=== PATIENT | female | born 1935 | race Caucasian/White ===

== ENCOUNTER 2017-08-18 10:45 | Inpatient (IN) | payer OTHER, MEDICARE ==
[~2017-08-18] VITALS: Ht 162.6 cm; Wt 53.5 kg
[~2017-08-18 10:45] MED LIST: CALCIUM600 MG; CLONIDINE HCL0.2 MG; ENBREL50 MG/1 ML; FOSAMAX70 MG/75 M; IBUPROFEN400 MG; LISINOPRIL-HCT1 EAC2; MAGNESIUM 300300 MG; METOPROLOL TAR100 MG; PRENATAL CAPSU1 EACH; THYROID
[2017-08-18] MEDS ORDERED: ALBUTEROL SULF 0.083% NEB SOLN 3 ML NEB NEB STA (10:47)
[2017-08-18] MEDS ORDERED: IPRATROPIUM BROMIDE 0.02% 2.5 ML NEB NEB STA (10:47)
[2017-08-18] MEDS ORDERED: METHYLPREDNISOLONE SOD SUCC 125 MG/2ML VIAL IV ONE (11:30)
--- NOTE | 2017-08-18 12:00 | Diagnostic Imaging Report ---
EXAMINATION: Chest, CHEST SINGLE (PORTABLE) INDICATION: Chest pain COMPARISON: None FINDINGS: LINES: None. Heart: Normal cardiac silhouette. Vascular: The pulmonary vasculature is within normal limits. Atherosclerotic calcifications of the aortic arch. Mediastinum: No mediastinal, hilar, or axillary mass or lymphadenopathy. Lungs: No parenchymal mass. No focal consolidation. Bibasilar atelectasis. Pleura: No pleural effusion. No pneumothorax. Bones: No acute osseous abnormality. Degenerative changes of the thoracic spine. Postoperative changes of the proximal right humerus. Soft tissues: Normal. Impression: No acute radiographic abnormality. Signed by: Dr. Curt Alexis M.D. on 08/18/2017 11:56 AM
[2017-08-18 12:42] LABS: BASOPHILS # (AUTO) 0.1 (0.0-0.1); BASOPHILS % 0.4 % (0.0-1.0); HEMATOCRIT 39.8 % (34.2-44.1); HEMOGLOBIN 12.8 g/dL (12.0-16.0); LYMPHOCYTES # (AUTO) 0.9 (1.0-3.2); MEAN CORPUSCULAR HEMOGLOBIN 31.4 pg (28-32); MEAN CORPUSCULAR HGB CONC 32.2 g/dL (31-35); MEAN CORPUSCULAR VOLUME 97.8 fL (81-99); MONOCYTES # (AUTO) 1.6 (0.2-0.8); MONOCYTES % 13.4 % (4.4-11.3); NEUTROPHILS % 77.9 % (38.7-80.0); PLATELET COUNT 202 x10e3/uL (140-360); RED BLOOD COUNT 4.07 x10e6/uL (3.6-5.1); RED CELL DISTRIBUTION WIDTH 13.6 % (11.7-14.4)
[2017-08-18 12:51] LABS: INR 0.96; PROTHROMBIN TIME 13.3 seconds (11.9-14.5)
[2017-08-18 12:52] LABS: PARTIAL THROMBOPLASTIN TIME 33.2 seconds (23.8-35.5)
[2017-08-18 12:59] LABS: ALBUMIN 3.2 g/dL (3.5-5.0); ALBUMIN/GLOBULIN RATIO 0.7 (0.8-2.0); ANION GAP 12.4 mmol/L (8-16); CREATININE, SERUM 0.96 mg/dL (0.57-1.11); POTASSIUM 3.4 mmol/L (3.5-5.1)
[2017-08-18 13:03] LABS: LYMPHOCYTES % (MANUAL) 9 % (19-48); MONOCYTES % (MANUAL) 11 % (3.4-9.0); NEUTROPHILS % (MANUAL) 80 % (40-74); PLATELET ESTIMATE ADEQUATE; PLATELET MORPHOLOGY COMMENT NORMAL; RBC MORPHOLOGY COMMENT NORMAL
[2017-08-18 13:19] LABS: CREATINE KINASE MB 0.6 ng/mL (0.00-5.00); THYROID STIMULATING HORMONE 0.548 uIU/mL (0.350-4.940)
[2017-08-18 13:30] LABS: BILIRUBIN,URINE NEGATIVE (NEGATIVE); KETONES,URINE TRACE (NEGATIVE); LEUKOCYTE ESTERASE ,URINE TRACE (NEGATIVE); NITRITE,URINE NEGATIVE (NEGATIVE); URINE UROBILINOGEN 1 mg/dL (0.2 - 1)
[2017-08-18 13:35] LABS: CLARITY,URINE HAZY (CLEAR); COLOR,URINE YELLOW (YELLOW); PROTEIN,URINE DIPSTICK 2+ (NEGATIVE)
[2017-08-18 13:42] LABS: BACTERIA,URINE FEW /HPF; EPITHELIAL CELLS,URINE FEW /LPF; HYALINE CASTS 0-1 (0-1); WBC,URINE (MAN) 0-5 /HPF (0-5)
[2017-08-18] MEDS ORDERED: SODIUM CHLORIDE 0.9% 250ML 250 ML ONE (16:06)
--- NOTE | 2017-08-18 16:50 | Diagnostic Imaging Report ---
EXAM: CT Chest WITH contrast INDICATION: Chest pain COMPARISON: None available TECHNIQUE: Chest was scanned utilizing a multidetector helical scanner from the lung apex through the level of the diaphragm after administration of IV contrast. Coronal and sagittal reconstructions were submitted for interpretation. Protocol: Pulmonary embolus protocol IV CONTRAST: 100 mL of Isovue 370 COMPLICATIONS: None RADIATION DOSE: Total exam DLP: 403.8 mGy*cm. CTDIvol has been reviewed. It is below the limits set by the Radiation Protocol Committee (RPC). FINDINGS: LINES/ TUBES: None. Heart: No cardiomegaly. No pericardial effusion. Vessels: No intraluminal filling defect within the pulmonary arteries to the segmental level. Atherosclerotic calcifications of the thoracic aorta and coronary arteries. Mediastinum: No mediastinal or hilar mass or lymphadenopathy. Normal thyroid. Lungs: No parenchymal mass. No focal consolidation. Punctate nodular densities are present in the left upper lobe, series 3 image 65, and the bilateral lower lobes, series 3 image 83. More confluent opacities are present in the bilateral lower lobes. Pleura: No pleural effusion. No pneumothorax. Soft tissues: Normal. No axillary mass or lymphadenopathy. Bones: No acute osseous abnormality. Degenerative changes of the thoracic spine. Postoperative changes of the proximal right humerus. Adrenal glands: Fat-containing left adrenal nodule. Prominent right adrenal gland, without a focal nodule identified. Abdomen: The partially visualized portions of the upper abdomen are unremarkable.. IMPRESSION: 1. No evidence of pulmonary arterial embolism or thrombosis to the segmental level. 2. Nodular densities in the lungs bilaterally may represent a developing pneumonia. Signed by: Dr. Curt Alexis M.D. on 08/18/2017 4:46 PM
[2017-08-18] MEDS ORDERED: SODIUM CHLORIDE 0.9% 250ML 250 ML IV ONE ×2 (17:00→17:45)
[2017-08-18] MEDS ORDERED: AZITHROMYCIN 500MG/NS 250 ML 250 ML IV STA (17:02)
[2017-08-18] MEDS: CEFTRIAXONE SOD 1 GM VIAL IV SCH ×2 (17:15→17:29)
[2017-08-18] MEDS ORDERED: AZITHROMYCIN 500MG/SOD CHL 0.9% 250ML BAG IV SCH (17:15)
--- OUTSIDE RECORDS SUMMARY | 2017-08-18 18:17 | XMS REPORT ---
Author Author [facility] Address Unknown Phone Unavailable Care Team Providers Care Industrial Health Engineer Name Role Phone KAT RICK Unavailable Unavailable Problems This patient has no known problems. Allergies, Adverse Reactions, Alerts This patient has no known allergies or adverse reactions. Medications This patient has no known medications. Results Test Description Test Time Test Comments Text Results Atomic Results Result Comments CT CHEST W [place] [address] Patient Name: RADHA TONEY MR # : [id number] : 1935 Age/Sex: 82/F Req #: [id number] Adm Physician: Ordered by: ALEX PUENTE MANAGER LOGISTIC Report #: [id number] Location: ER Room/Bed: Procedure: [id number] CT/CT CHEST W Exam Date: 08/18/17 Exam Time: 1627 REPORT STATUS: Signed EXAM: CT Chest WITH contrast INDICATION: Chest pain COMPARISON: None available TECHNIQUE: Chest was scanned utilizing a multidetector helical scanner from the lung apex through the level of the diaphragm after administration of IV contrast. Coronal and sagittal reconstructions were submitted for interpretation. Protocol: Pulmonary embolus protocol IV CONTRAST: 100 mL of Isovue 370 COMPLICATIONS: None RADIATION DOSE: Total exam DLP: 403.8 mGy*cm. CTDIvol has been reviewed. It is below the limits set by the Radiation Protocol Committee (RPC). FINDINGS: LINES/ TUBES: None. Heart: No cardiomegaly. No pericardial effusion. Vessels: No intraluminal filling defect within the pulmonary arteries to the segmental level. Atherosclerotic calcifications of the thoracic aorta and coronary arteries. Mediastinum : No mediastinal or hilar mass or lymphadenopathy. Normal thyroid. Lungs: No parenchymal mass. No focal consolidation. Punctate nodular densities are present in the left upper lobe, series 3 image 65, and the bilateral lower lobes, series 3 image 83. More confluent opacities are present in the bilateral lower lobes. Pleura: No pleural effusion. No pneumothorax. Soft tissues: Normal. No axillary mass or lymphadenopathy. Bones: No acute osseous abnormality. Degenerative changes of the thoracic spine. Postoperative changes of the proximal right humerus. Adrenal glands: Fat- containing left adrenal nodule. Prominent right adrenal gland, without a focal nodule identified. Abdomen: The partially visualized portions of the upper abdomen are unremarkable.. IMPRESSION: 1. No evidence of pulmonary arterial embolism or thrombosis to the segmental level. 2. Nodular densities in the lungs bilaterally may represent a developing pneumonia. Signed by: Dr. Kailyn Dailey M.D. on 08/18/2017 4:46 PM Dictated By: KAILYN DAILEY MD 45 COPY TO: ALEX PUENTE MANAGER LOGISTIC CHEST SINGLE (PORTABLE) [place] [address] Patient Name: RADHA TONEY MR #: [id number] : 1935 Age/Sex: 82/F Req #: [id number] Adm Physician: Ordered by: ALEX PUENTE MANAGER LOGISTIC Report # : [id number] Location: ER Room/Bed: Procedure: [id number] DX/CHEST SINGLE (PORTABLE) Exam Date: 08/18/17 Exam Time: 1145 REPORT STATUS: Signed EXAMINATION: Chest, CHEST SINGLE (PORTABLE) INDICATION: Chest pain COMPARISON: None FINDINGS: LINES: None. Heart: Normal cardiac silhouette. Vascular: The pulmonary vasculature is within normal limits. Atherosclerotic calcifications of the aortic arch. Mediastinum: No mediastinal, hilar, or axillary mass or lymphadenopathy. Lungs: No parenchymal mass. No focal consolidation. Bibasilar atelectasis. Pleura: No pleural effusion. No pneumothorax. Bones: No acute osseous abnormality. Degenerative changes of the thoracic spine. Postoperative changes of the proximal right humerus. Soft tissues: Normal. Impression: No acute radiographic abnormality. Signed by: Dr. Kailyn Dailey M.D. on 08/18/2017 11:56 AM Dictated By: KAILYN DAILEY MD 1156 Transcribed By: CAMILO on 08/18/17 1156 COPY TO: ALEX PUENTE NP
[2017-08-18] MEDS: SODIUM CHLORIDE 0.9% 1000ML 1,000 ML IV SCH (18:33)
[2017-08-18] MEDS ORDERED: SODIUM CHLORIDE 0.9% 50ML 50 ML ONE (18:39)
[2017-08-18] MEDS ORDERED: IOPAMIDOL 370 MG/ML 200 ML INFUS..BTL INJ ONE (18:39)
[2017-08-18] MEDS: ALBUTEROL SULF 0.083% NEB SOLN 3 ML NEB NEB SCH ×2 (18:50→21:35)
[2017-08-18] MEDS: IPRATROPIUM BROMIDE 0.02% 2.5 ML NEB NEB SCH ×2 (18:50→22:00)
[2017-08-19] MEDS: ALBUTEROL SULF 0.083% NEB SOLN 3 ML NEB NEB SCH ×3 (01:52→10:45)
[2017-08-19] MEDS: IPRATROPIUM BROMIDE 0.02% 2.5 ML NEB NEB SCH ×3 (06:35→19:15)
[2017-08-19] MEDS: SODIUM CHLORIDE 0.9% 1000ML 1,000 ML IV SCH (12:04)
[2017-08-19] MEDS: CEFTRIAXONE SOD 1 GM VIAL IV SCH ×2 (12:28→17:20)
[2017-08-19] MEDS ORDERED: POTASSIUM CHLORIDE 20 MEQ TAB CR PO ONE (13:30)
[2017-08-19 14:13] LABS: THYROID STIMULATING HORMONE 0.364 uIU/mL (0.350-4.940)
--- NOTE | 2017-08-19 15:42 | History and Physical ---
CLINICAL HISTORY: This is an 82-year-old white woman, a patient of Dr. Moore and Dr. Daly, seen in the emergency room of [facility] because of worsening cough, shortness of breath, and hypoxemia. This patient apparently has had a cough for 3 weeks. She went to see in her office and was referred to the emergency room. Workup in the emergency room included a chest x-ray that showed no acute abnormalities. CT scan of the chest showed no evidence of pulmonary embolism. There was nodular density bilaterally, cannot exclude pneumonia. She has history of rheumatoid arthritis. Her saturation in the emergency room was in the 90s despite being in the 70s in the doctor's office. She does have heavy right fingernails divehi. PAST MEDICAL HISTORY: Remarkable for appendectomy, left knee replacement, right hip surgery, right shoulder surgery, hypothyroidism, rheumatoid arthritis, and hypertension. MEDICATIONS: At home included Enbrel, lisinopril, hydrochlorothiazide, metoprolol, levothyroxine, magnesium oxide, and vitamins with iron. PERSONAL AND SOCIAL HISTORY: Cigarette smoker and continues smoke. 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 She drinks occasionally. She has dogs at home and is concerned about not able to feed them. FAMILY HISTORY: Both parents from old age. Brother and sister are alive and well. REVIEW OF SYSTEMS: Negative. PHYSICAL EXAMINATION: GENERAL: She is thin, poor hearing. VITAL SIGNS: Stable otherwise. Saturation in the 90s. CARDIOVASCULAR: Jugular veins are not distended. S1 and S2 somewhat rapid. LUNGS: Clear. ABDOMEN: Soft. Bowel sounds are present. EXTREMITIES: Show no cyanosis, clubbing, or edema. IMPRESSION: 1. Kevoy-rw-lofwpkv bronchitis. 2. Cigarette smoking. 3. Hypothyroidism. 4. Hypertension. 5. Rheumatoid arthritis. 6. Immunosuppression with Enbrel. 7. Resting tachycardia, possibly exacerbated by albuterol. RECOMMENDATIONS: Hospitalization, antibiotic coverage, and follow chest x-ray. Job#: [id number] DEMETRIUS cc:Tristan Daly MD
[2017-08-19] MEDS: METOPROLOL TARTRATE 50 MG TAB PO SCH (17:00)
[2017-08-19] MEDS: AZITHROMYCIN 500MG/NS 250 ML 250 ML IV SCH (17:33)
[2017-08-19 20:00] VITALS: BP 161/88
[2017-08-20] MEDS: IPRATROPIUM BROMIDE 0.02% 2.5 ML NEB NEB SCH ×3 (01:10→08:06)
[2017-08-20] MEDS: LEVOTHYROXINE SODIUM 112 MCG TAB PO SCH (06:13)
[2017-08-20 06:33] LABS: ANION GAP 12.7 mmol/L (8-16); CALCIUM 9.6 mg/dL (8.4-10.2); CREATININE, SERUM 0.96 mg/dL (0.57-1.11); POTASSIUM 4.7 mmol/L (3.5-5.1)
[2017-08-20 08:29] VITALS: BP 176/90
[2017-08-20] MEDS ORDERED: LISINOPRIL 10 MG TAB PO SCH (09:00)
[2017-08-20] MEDS ORDERED: HYDROCHLOROTHIAZIDE 25 MG TAB PO SCH (09:00)
[2017-08-20] MEDS: METOPROLOL TARTRATE 50 MG TAB PO SCH ×2 (09:34→17:13)
[2017-08-20] MEDS: MAGNESIUM OXIDE 400 MG TAB PO SCH (09:34)
[2017-08-20 09:38] VITALS: BP 153/76
[2017-08-20] MEDS ORDERED: ALBUTEROL/IPRATROPIUM 3 ML NEB NEB PRN (11:15)
[2017-08-20 12:14] VITALS: BP 153/76
[2017-08-20] MEDS: GUAIFENESIN 600MG/DEXTROMETHORPHAN 30MG TABSR PO SCH ×2 (12:23→20:17)
[2017-08-20 16:22] VITALS: BP 139/77
[2017-08-20] MEDS: CEFTRIAXONE SOD 1 GM VIAL IV SCH (17:13)
--- NOTE | 2017-08-20 17:49 | Consultation ---
DATE OF CONSULTATION: August 20, 2017 REASON FOR CONSULTATION: Shortness of breath and wheezing. HPI: Ms. Polk is an 82-year-old female. She regularly follows up with Dr. Moore and Dr. Daly. She presented with shortness of breath and wheezing to the emergency room and chest CT showed bilateral lower lobe infiltrate versus pneumonia. She has been a smoker for 60 years she smoked 1 pack per day for 60 years. 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 She is concerned about the swelling around her neck. She reports that it is new. REVIEW OF SYSTEMS: GENERAL: Denies any fever or chills. HEAD: Denies any head trauma. ENT: Denies any earache, nose or throat pain. CVS: Denies any chest pain. RESPIRATORY: Shortness of breath. The rest of the review systems are negative except as in history of present illness. PAST MEDICAL HISTORY: Left knee replacement, appendectomy, hypertension and rheumatoid arthritis. She on Enbrel. FAMILY AND SOCIAL HISTORY: She smoked for last 60 years 1 pack per day. 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 She drinks occasionally. She has dogs at home. FAMILY HISTORY: Denies any family history of heart disease. PHYSICAL EXAMINATION: VITALS: Temperature 97.6, pulse of 64, blood pressure 139/77, respiratory rate of 18, O2 sat 94% on 2 liters. SKIN: Warm and dry. GENERAL APPEARANCE: She is an elderly female not in any obvious distress. GENERAL: She is awake and alert, following commands and following commands appropriately. HEENT: Head atraumatic, normocephalic. Pupils are reactive. NECK: Supple with no JVD. Thyroid not enlarged. There is swelling underneath her chin, but I do not palpate any lymphadenopathy. CHEST: She has wheezing and crackles bilaterally. HEART: S1 and S2 audible. ABDOMEN: Soft and nontender, nondistended. EXTREMITIES: No clubbing, cyanosis or edema. NEUROLOGIC: Awake and alert. LABORATORY DATA: White count of 11,000, hemoglobin 12.8, platelets 202,000. Chemistry: Sodium 139, potassium 4.7, chloride 105, BUN 28, creatinine 0.96. Blood cultures have been negative. I have reviewed the images of CT of the chest showing evidence of right lower lobe pneumonia, no lymphadenopathy. ASSESSMENT AND PLAN: An 82-year-old female smoker for last 60 years presented with shortness of breath. CT chest showing possibility of pneumonia. She is immunocompromised as she takes Enbrel. She is concerned about the neck and swelling under her chin. I am not able to palpate any lymph nodes. PLAN: 1. Agree with IV Rocephin azithromycin. 2. Will start low-dose steroids. 3. Continue nebulizer treatment. 4. I will do a CT neck to rule out any mass lesion around the neck. Job#: [id number]
[2017-08-20] MEDS: AZITHROMYCIN 500MG/NS 250 ML 250 ML IV SCH (17:57)
[2017-08-20 20:00] VITALS: BP 136/70
[2017-08-20] MEDS: METHYLPREDNISOLONE SOD SUCC 40 MG/ML VIAL IV SCH (20:17)
--- NOTE | 2017-08-20 20:27 | Diagnostic Imaging Report ---
History: Neck swelling. Comparison studies: None Technique: Axial images were obtained from the skull base to the thoracic inlet. Coronal and sagittal images reconstructed from the axial data. Intravenous contrast: None Findings: Evaluation of the neck is limited due to the absence of intravenous contrast and dental amalgham artifacts. In spite of this limitation, Soft tissues: Nonspecific mild to moderate subcutaneous soft tissue inflammatory fat stranding in bilateral anterior and lateral aspect of the neck extending from the submandibular region superiorly to the level of the cricoid. There is associated thickening of the platysma bilaterally No discrete fluid collection however suboptimal evaluation for soft tissue abscess due to lack of intravenous contrast. Nonspecific mild mucosal edema in the supraglottic region resulting in focal, mild narrowing of the airway. Lymph nodes: No radiographically significant adenopathy. Vessels: Cannot evaluate. Glands (parotid and submandibular): Normal in size and symmetric. No masses. Thyroid gland is not visualized possibly related to prior surgery. Orbits: No abnormalities. Paranasal sinuses: Clear. Temporal bones: No abnormalities. Skull base and facial bones: Intact. Cervical spine: Reversal of normal cervical lordosis. 2 mm grade 1 anterolisthesis at C2-C3. C3-C4: Bilateral moderate foraminal stenosis due to facet and uncovertebral arthrosis. C4-C5: Mild right foraminal stenosis due to facet and uncovertebral arthrosis. C5-C6: Moderate to severe degenerative disc disease. Moderate right and mild left foraminal stenosis due to facet and uncovertebral arthrosis. C6-C7: Moderate right foraminal stenosis due to facet and uncovertebral arthrosis. IMPRESSION: Evaluation of the neck is limited due to the absence of intravenous contrast and dental amalgham artifacts. Despite the limitation nonspecific mild subcutaneous soft tissue inflammatory changes in the anterior and lateral aspect of the neck possibly represents cellulitis in appropriate clinical setting. No discrete fluid collection. Nonspecific mild mucosal edema in the supraglottic region resulting in focal, mild narrowing of the airway, may be related to infectious or inflammatory process. Signed by: Dr. Leida Rivas M.D. on 08/20/2017 8:24 PM
[2017-08-21] VITALS (8 sets, daily range): BP systolic 156–187; BP diastolic 76–93
[2017-08-21] MEDS: LEVOTHYROXINE SODIUM 112 MCG TAB PO SCH (05:23)
[2017-08-21] MEDS: MAGNESIUM OXIDE 400 MG TAB PO SCH (07:45)
[2017-08-21] MEDS: GUAIFENESIN 600MG/DEXTROMETHORPHAN 30MG TABSR PO SCH ×2 (07:45→21:00)
[2017-08-21] MEDS: METOPROLOL TARTRATE 50 MG TAB PO SCH ×2 (07:45→16:55)
[2017-08-21] MEDS: METHYLPREDNISOLONE SOD SUCC 40 MG/ML VIAL IV SCH ×2 (07:45→21:00)
--- NOTE | 2017-08-21 12:21 | Cardiology Report ---
DATE OF STUDY: ECHOCARDIOGRAM ATTENDING PHYSICIAN: Dr. Tristan Daly. NEONATAL SOCIAL WORKER: Dr. Jin. CLINICAL HISTORY AND INDICATION: An 82-year-old white woman presented with acute shortness of breath. M-MODE: Normal chamber and wall dimensions. Normal contractility. Aortic sclerosis grossly of the mitral valve leaflets. Normal tricuspid valve. No pericardial effusion. SECTOR SCAN: Normal chamber and wall dimensions. Normal contractility. Ejection fraction is approximately 60%. Aortic valve is mildly sclerotic. Anterior mitral leaflets slightly sclerotic. Normal tricuspid valve. No pericardial effusion. CARDIAC DOPPLER STUDY WITH COLOR: Trace mitral and tricuspid regurgitation. Pulmonary artery systolic pressure estimated at 27 mmHg. CONCLUSIONS 1. Left ventricular ejection fraction is approximately 65%. 2. Mild aortic sclerosis without significant aortic regurgitation. 3. Sclerosis of the anterior mitral leaflet with trace mitral regurgitation. 4. Trace tricuspid regurgitation. Job#: [id number] SAK cc:Dr. Tristan Daly
[2017-08-21] MEDS: PIPER-TAZ 3.375 GM 50 ML IV SCH ×2 (14:30→22:00)
[2017-08-21] MEDS: AZITHROMYCIN 500MG/NS 250 ML 250 ML IV SCH (17:14)
[2017-08-22 00:59] VITALS: BP 162/89
[2017-08-22] MEDS: PIPER-TAZ 3.375 GM 50 ML IV SCH (05:41)
[2017-08-22] MEDS: LEVOTHYROXINE SODIUM 112 MCG TAB PO SCH (05:41)
[2017-08-22] MEDS: METOPROLOL TARTRATE 50 MG TAB PO SCH (06:19)
[2017-08-22 06:20] LABS: BASOPHILS % 0.2 % (0.0-1.0); HEMATOCRIT 39.2 % (34.2-44.1); HEMOGLOBIN 12.4 g/dL (12.0-16.0); LYMPHOCYTES # (AUTO) 1.5 (1.0-3.2); LYMPHOCYTES % 16.4 % (18.0-39.1); MEAN CORPUSCULAR HEMOGLOBIN 30.8 pg (28-32); MEAN CORPUSCULAR HGB CONC 31.6 g/dL (31-35); MEAN CORPUSCULAR VOLUME 97.5 fL (81-99); MONOCYTES # (AUTO) 0.3 (0.2-0.8); MONOCYTES % 3.8 % (4.4-11.3); NEUTROPHILS # (AUTO) 7.1 (2.1-6.9); NEUTROPHILS % 78.7 % (38.7-80.0); PLATELET COUNT 285 x10e3/uL (140-360); RED BLOOD COUNT 4.02 x10e6/uL (3.6-5.1); RED CELL DISTRIBUTION WIDTH 13.5 % (11.7-14.4)
[2017-08-22 06:39] LABS: ANION GAP 11.6 mmol/L (8-16); CALCIUM 9.7 mg/dL (8.4-10.2); CREATININE, SERUM 1.04 mg/dL (0.57-1.11); POTASSIUM 5.6 mmol/L (3.5-5.1)
[2017-08-22 07:13] LABS: LYMPHOCYTES % (MANUAL) 14 % (19-48); MONOCYTES % (MANUAL) 4 % (3.4-9.0); NEUTROPHILS % (MANUAL) 82 % (40-74)
[2017-08-22 07:14] LABS: ANISOCYTOSIS SLIGHT; HOWELL-JOLLY BODIES FEW; HYPOCHROMASIA SLIGHT; PLATELET ESTIMATE ADEQUATE; PLATELET MORPHOLOGY COMMENT NORMAL; POIKILOCYTOSIS SLIGHT; RBC MORPHOLOGY COMMENT NORMAL
[2017-08-22 08:00] VITALS: BP_SYST 181; BP_DIAS 81; BP_DIAS 97
[2017-08-22] MEDS: METHYLPREDNISOLONE SOD SUCC 40 MG/ML VIAL IV SCH (09:05)
[2017-08-22] MEDS: GUAIFENESIN 600MG/DEXTROMETHORPHAN 30MG TABSR PO SCH (09:05)
[2017-08-22] MEDS: MAGNESIUM OXIDE 400 MG TAB PO SCH (09:05)
[2017-08-22] MEDS ORDERED: PROAIR HFA INH8.5 GM IH (11:23)
[2017-08-22] MEDS ORDERED: AUGMENTIN 875-1 EACH PO (11:23)
[2017-08-22 12:00] VITALS: BP 192/100
--- NOTE | 2017-08-22 14:44 | Discharge Summary ---
HISTORY AND HOSPITAL COURSE: Ms. Polk is a pleasant 82-year-old lady, who is a patient of Dr. Etienne, who has a past medical history significant for being a long-term smoker and history of rheumatoid arthritis and hypertension. She has been chronically on Enbrel for her rheumatoid arthritis. According to the patient, she has had upper respiratory symptoms, having dyspnea and wheezing that brought her to the emergency department. At the time of admission, she was evaluated with a chest x-ray and then a CT of the chest, which was consistent with bilateral lower lobe infiltrates. Her flu test was negative. She was admitted to the hospital and was started on a combination of ceftriaxone and Zithromax as well as nebulized [id number] and supplemental oxygen. The patient has a longstanding history of smoking as mentioned before, but according to her, she does not see a desktop publishing specialist and has not been diagnosed with COPD. A consultation was requested with Dr. Pacheco, pulmonology. She was seen by Dr. Pacheco. Her treatment plan was confirmed, but she complained at that time of having some neck and throat discomfort and some minor swelling of the soft tissue around the neck. A noncontrast CT of the neck was requested, this was consistent with some stranding of subcutaneous tissue that could be related to cellulitis. Her antibiotic was switched to Zosyn and with these interventions, the patient's symptoms quickly improved. She is being discharged home in stable condition. She is given prescriptions at discharge for Augmentin and ProAir. I have discussed smoking cessation in detail with the patient, and she is to follow up with her primary care physician in 10 days' time. LAUREN PLATT MD Job#: [id number] PAT
== END 2017-08-22 12:30 | disposition home or self-care (01) | DRG 190 ==
LOC: ER 10:45 → ERHOLD 18:14 → MED/SURG2 08-19 18:02
PROVIDERS: ADMIT Internal Medicine; ATTEND Internal Medicine
DX: J44.0 Chronic obstructive pulmonary disease with (acute) lower respiratory infection (principal); J18.9 Pneumonia, unspecified organism; L03.221 Cellulitis of neck; J44.1 Chronic obstructive pulmonary disease with (acute) exacerbation; M06.9 Rheumatoid arthritis, unspecified; I10 Essential (primary) hypertension; E03.9 Hypothyroidism, unspecified; F17.210 Nicotine dependence, cigarettes, uncomplicated; R09.02 Hypoxemia
CPT/HCPCS: 36415; 70490; 71045; 71260; 80048; 80053; 81001; 82550; 82553; 83880; 84132; 84436; 84443; 84479; 84484; 85025; 85610; 85651; 85730; 87040; 87086; 87400; 93005; 93306; 94640; 99284; J0456; J0696; J2543; J2920; J2930; J7030; J7050; Q9967

== ENCOUNTER 2019-09-29 13:48 | Emergency (ER) | payer BC, MEDICARE ==
[~2019-09-29] VITALS: Ht 162.6 cm; Wt 53.5 kg
[~2019-09-29 13:48] MED LIST changes: +AUGMENTIN 875-1 EACH PO; +PROAIR HFA INH8.5 GM IH
--- OUTSIDE RECORDS SUMMARY | 2019-09-29 13:53 | XMS REPORT | Summary of Care ---
Author Author [facility] - Health Organization [facility] - Health Address Unknown Phone Unavailable Care Team Providers Care Federal Air Marshal Name Role Phone Fabien Moore PCP Reason for Visit * Reason Comments Appointment Encounter Details Care Team Description Date Type Department Jose Godinez MD [address] [place] [address] Appointment 03/13/2019 Telephone [facility] Orthopaedic Surgery- [facility] [address], [address] [place] [address] Allergies No Known Allergiesdocumented as of this encounter (statuses as of 03/13/2019) Medications End Date Status Medication Sig Dispensed Refills Start Date Active lisinopril-hydrochlorothi lisinopril 10 0 azide 10-12.5 mg per mg-hydrochlor tablet othiazide 12.5 mg tablet Take 1 tablet every day by oral route. Active METOPROLOL TARTRATE ORAL Take 1 tablet 0 by mouth 2 (two) times daily. Active etanercept (ENBREL) 50 1 Dose 0 mg/mL (0.98 mL) injection weekly. Active ANORO ELLIPTA 62.5-25 INHALE 1 PUFF 6 mcg/actuation inhalation BY MOUTH ONCE 9 disk A DAY DIRECTED documented as of this encounter (statuses as of 03/13/2019) Active Problems No known active problemsdocumented as of this encounter (statuses as of 03/13/2019) Social History Date Tobacco Use Types Packs/Day Years Used Never Assessed Sex Assigned at Date Recorded Not on file Industry Job Start Date Occupation Not on file Not on file Not on file Travel End Travel History Travel Start No recent travel history available. documented as of this encounter Last Filed Vital Signs Not on filedocumented in this encounter Plan of Treatment Health Maintenance Due Date Last Done Comments DTaP,Tdap,and Td Vaccines 01/24/1954 (1 - Tdap) Zoster Recombinant 1987 Vaccine (SHINGRIX) (1 of 2) Medicare Wellness Visit 2002 Osteoporosis Screening 2002 PNEUMOCOCCAL VACCINES 65+ 2002 (1 of 2 - PCV13) INFLUENZA VACCINE (#1) 2019 documented as of this encounter Results Not on filedocumented in this encounter Insurance Type Payer Benefit Subscriber ID Effective Phone Address Plan / Dates Group [id number] documented as of this encounter
[2019-09-29 14:43] LABS: BASOPHILS % 0.3 % (0.0-1.0); EOSINOPHILS % 0.2 % (0.0-6.0); HEMATOCRIT 42.7 % (34.2-44.1); HEMOGLOBIN 14.1 g/dL (12.0-16.0); LYMPHOCYTES # (AUTO) 1.6 (1.0-3.2); LYMPHOCYTES % 12.6 % (18.0-39.1); MEAN CORPUSCULAR HEMOGLOBIN 31.4 pg (28-32); MEAN CORPUSCULAR VOLUME 95.1 fL (81-99); MONOCYTES # (AUTO) 1.9 (0.2-0.8); MONOCYTES % 15.4 % (4.4-11.3); NEUTROPHILS # (AUTO) 8.9 (2.1-6.9); NEUTROPHILS % 71.2 % (38.7-80.0); PLATELET COUNT 280 x10e3/uL (140-360); RED BLOOD COUNT 4.49 x10e6/uL (3.6-5.1); RED CELL DISTRIBUTION WIDTH 12.8 % (11.7-14.4)
[2019-09-29 15:00] LABS: ALBUMIN 3.4 g/dL (3.5-5.0); ALBUMIN/GLOBULIN RATIO 0.7 (0.8-2.0); ANION GAP 11.5 mmol/L (8-16); CALCIUM 11.1 mg/dL (8.4-10.2); CREATININE, SERUM 1.21 mg/dL (0.57-1.11); POTASSIUM 3.5 mmol/L (3.5-5.1)
[2019-09-29 15:06] LABS: CREATINE KINASE MB 3.9 ng/mL (0-5.0)
[2019-09-29] MEDS ORDERED: ALBUTEROL/IPRATROPIUM 3 ML NEB NEB ONE (15:30)
--- NOTE | 2019-09-29 15:47 | Diagnostic Imaging Report ---
EXAMINATION: CHEST SINGLE (PORTABLE) INDICATION: Chest pain COMPARISON: Chest are graft to 10/02/2017 FINDINGS: LINES/TUBES:None LUNGS:The lungs are hyperinflated. New patchy opacity at the left mid lung and left lung base partially silhouetting the left heart border. PLEURA:No pleural effusion or pneumothorax. MEDIASTINUM:The cardiomediastinal silhouette appears unchanged in size and shape. Atherosclerotic calcifications of the thoracic aorta. BONES/SOFT TISSUES:No acute osseous injury. Status post ORIF of the right proximal humerus. ABDOMEN:No free air under the diaphragm. IMPRESSION: Patchy opacities at the left mid lung and left lung base partially silhouetting the left heart border may represent aspiration or pneumonia in the proper clinical setting. RECOMMENDATIONS: Follow-up PA and lateral chest radiograph in 6-8 weeks following treatment to assess for resolution. Signed by: Hugo Herrera MD on 09/29/2019 3:44 PM
--- NOTE | 2019-09-29 17:01 | Diagnostic Imaging Report ---
EXAMINATION: CHEST 2 VIEWS INDICATION: Chest pain COMPARISON: Chest are graft to 10/02/2017 FINDINGS: LINES/TUBES:None LUNGS:The lungs are hyperinflated. Patchy opacity at the left mid lung and left lung base partially silhouetting the left heart border. PLEURA:No pleural effusion or pneumothorax. MEDIASTINUM:The cardiomediastinal silhouette appears unchanged in size and shape. Atherosclerotic calcifications of the thoracic aorta. BONES/SOFT TISSUES:No acute osseous injury. Status post ORIF of the right proximal humerus. ABDOMEN:No free air under the diaphragm. IMPRESSION: Patchy opacities at the left mid lung and left lung base partially silhouetting the left heart border may represent aspiration or pneumonia in the proper clinical setting. RECOMMENDATIONS: Follow-up PA and lateral chest radiograph in 6-8 weeks following treatment to assess for resolution. Signed by: Hugo Herrera MD on 09/29/2019 4:58 PM
[2019-09-29] MEDS ORDERED: LEVAQUIN500 MG PO (17:59)
== END 2019-09-29 18:47 | disposition home or self-care (01) ==
LOC: ER 13:48
DX: R06.00 Dyspnea, unspecified (principal); J15.9 Unspecified bacterial pneumonia; J44.9 Chronic obstructive pulmonary disease, unspecified; F17.210 Nicotine dependence, cigarettes, uncomplicated
CPT/HCPCS: 36415; 71045; 71046; 80053; 82550; 82553; 83880; 84484; 85025; 87040; 87400; 93005; 99284

== ENCOUNTER 2021-06-25 01:42 | Inpatient (IN) | payer BC, MEDICARE ==
[~2021-06-25] VITALS: Ht 162.6 cm; Wt 56.7 kg
[~2021-06-25 01:42] MED LIST changes: +LEVAQUIN500 MG PO
[2021-06-25] MEDS ORDERED: ONDANSETRON HCL INJ 2MG/ML 2ML 2 MG/ML VIAL IV STA (02:02)
[2021-06-25] MEDS ORDERED: Morphine 4mg Syringe 4 MG/ML INJ IV STA (02:02)
[2021-06-25 02:08] LABS: BASOPHILS % 0.2 % (0.0-1.0); EOSINOPHILS % 0.2 % (0.0-6.0); HEMATOCRIT 39.4 % (34.2-44.1); HEMOGLOBIN 12.7 g/dL (12.0-16.0); LYMPHOCYTES % 6.5 % (18.0-39.1); MEAN CORPUSCULAR HEMOGLOBIN 31.9 pg (28-32); MEAN CORPUSCULAR HGB CONC 32.2 g/dL (31-35); MONOCYTES # (AUTO) 1.4 (0.2-0.8); MONOCYTES % 8.6 % (4.4-11.3); NEUTROPHILS # (AUTO) 13.4 (2.1-6.9); NEUTROPHILS % 84.1 % (38.7-80.0); PLATELET COUNT 172 x10e3/uL (140-360); RED BLOOD COUNT 3.98 x10e6/uL (3.6-5.1); RED CELL DISTRIBUTION WIDTH 12.2 % (11.7-14.4)
[2021-06-25 02:24] LABS: ALBUMIN 3.6 g/dL (3.5-5.0); ALBUMIN/GLOBULIN RATIO 1.2 (0.8-2.0); ANION GAP 15.9 mmol/L (8-16); CALCIUM 10.6 mg/dL (8.4-10.2); CREATININE, SERUM 1.03 mg/dL (0.57-1.11); POTASSIUM 3.9 mmol/L (3.5-5.1)
[2021-06-25] MEDS ORDERED: FENTANYL CITRATE/PF 100MCG/2 ML INJ IV ONE (04:00)
[2021-06-25] MEDS ORDERED: FENTANYL CITRATE/PF 100MCG/2 ML INJ ONE (04:08)
[2021-06-25 06:09] LABS: CLARITY,URINE SL CLOUDY (CLEAR); COLOR,URINE YELLOW (YELLOW); KETONES,URINE NEGATIVE (NEGATIVE); LEUKOCYTE ESTERASE ,URINE NEGATIVE (NEGATIVE); NITRITE,URINE NEGATIVE (NEGATIVE); PROTEIN,URINE DIPSTICK NEGATIVE (NEGATIVE); URINE UROBILINOGEN 0.2 mg/dL (0.2 - 1)
[2021-06-25 06:12] LABS: BACTERIA,URINE FEW /HPF; EPITHELIAL CELLS,URINE FEW /LPF; WBC,URINE (MAN) 0-5 /HPF (0-5)
[2021-06-25] MEDS ORDERED: HYDRALAZINE HCL 20 MG/ML VIAL IV PRN (13:45)
[2021-06-25 14:49] VITALS: BP 168/62
[2021-06-25 15:03] VITALS: BP 168/62
[2021-06-25] MEDS ORDERED: ALBUTEROL SULFATE HFA 8GM INHALATION AEROSOL INH PRN (15:15)
[2021-06-25] MEDS ORDERED: NICOTINE 14 MG/EA PATCH TOP PRN (15:15)
[2021-06-25] MEDS: METOPROLOL TARTRATE 25 MG TAB PO SCH ×2 (15:27→22:00)
[2021-06-25] MEDS: SODIUM CHLORIDE 0.9% 1000ML 1,000 ML IV SCH (15:27)
[2021-06-25 20:00] VITALS: BP_SYST 120; BP_SYST 168; BP_DIAS 48; BP_DIAS 62
[2021-06-25] MEDS: ACETAMINOPHEN 325 MG TAB PO PRN (21:22)
[2021-06-25] MEDS: ALBUTEROL/IPRATROPIUM 3 ML NEB NEB PRN (23:40)
[2021-06-26] VITALS (7 sets, daily range): BP systolic 101–143; BP diastolic 53–67
[2021-06-26] MEDS: SODIUM CHLORIDE 0.9% 1000ML 1,000 ML IV SCH ×2 (04:00→17:23)
[2021-06-26] MEDS: LEVOTHYROXINE SODIUM 100 MCG TAB PO SCH (05:07)
[2021-06-26] MEDS ORDERED: LEVOTHYROXINE SODIUM 125 MCG TAB PO SCH (06:00)
[2021-06-26 06:19] LABS: BASOPHILS # (AUTO) 0.1 (0.0-0.1); BASOPHILS % 0.6 % (0.0-1.0); EOSINOPHILS # (AUTO) 0.4 (0.0-0.4); EOSINOPHILS % 3.9 % (0.0-6.0); HEMATOCRIT 36.1 % (34.2-44.1); HEMOGLOBIN 11.6 g/dL (12.0-16.0); LYMPHOCYTES % 22.4 % (18.0-39.1); MEAN CORPUSCULAR HEMOGLOBIN 31.9 pg (28-32); MEAN CORPUSCULAR HGB CONC 32.1 g/dL (31-35); MEAN CORPUSCULAR VOLUME 99.2 fL (81-99); MONOCYTES # (AUTO) 1.3 (0.2-0.8); MONOCYTES % 14.3 % (4.4-11.3); NEUTROPHILS # (AUTO) 5.2 (2.1-6.9); NEUTROPHILS % 58.3 % (38.7-80.0); PLATELET COUNT 146 x10e3/uL (140-360); RED BLOOD COUNT 3.64 x10e6/uL (3.6-5.1); RED CELL DISTRIBUTION WIDTH 12.2 % (11.7-14.4)
[2021-06-26] MEDS: METOPROLOL TARTRATE 25 MG TAB PO SCH ×3 (06:20→22:40)
[2021-06-26] MEDS: ACETAMINOPHEN 325 MG TAB PO PRN ×2 (06:21→22:42)
[2021-06-26 06:40] LABS: ALBUMIN 2.9 g/dL (3.5-5.0); ANION GAP 11.3 mmol/L (8-16); CALCIUM 9.4 mg/dL (8.4-10.2); CREATININE, SERUM 1.02 mg/dL (0.57-1.11); POTASSIUM 4.3 mmol/L (3.5-5.1)
[2021-06-26] MEDS: ALBUTEROL/IPRATROPIUM 3 ML NEB NEB PRN ×3 (06:42→18:45)
[2021-06-26] MEDS: NICOTINE 14 MG/EA PATCH TOP SCH (09:21)
[2021-06-26 09:57] LABS: ABG HCO3 26 mmol/L (22-26); ABG PCO2 45 mmHg (35-45); ABG PH 7.36 (7.35-7.45); ABG PO2 75 mmHg (80-105); ABG TCO2 27
[2021-06-26] MEDS: Morphine 4mg Syringe 4 MG/ML INJ IV PRN (17:33)
[2021-06-26] MEDS: ONDANSETRON HCL INJ 2MG/ML 2ML 2 MG/ML VIAL IV PRN (17:33)
[2021-06-26] MEDS: BUDESONIDE/FORMOTEROL 160/4.5MCG INHALER INH SCH (18:45)
[2021-06-27] VITALS (8 sets, daily range): BP systolic 112–135; BP diastolic 49–57
[2021-06-27] MEDS: ALBUTEROL/IPRATROPIUM 3 ML NEB NEB PRN ×2 (01:15→07:00)
[2021-06-27] MEDS: ONDANSETRON HCL INJ 2MG/ML 2ML 2 MG/ML VIAL IV PRN (05:12)
[2021-06-27] MEDS: Morphine 4mg Syringe 4 MG/ML INJ IV PRN ×3 (05:12→20:45)
[2021-06-27] MEDS: LEVOTHYROXINE SODIUM 100 MCG TAB PO SCH (05:12)
[2021-06-27] MEDS: TIOTROPIUM 18 MCG INH POWDER INH SCH (06:00)
[2021-06-27] MEDS: SODIUM CHLORIDE 0.9% 1000ML 1,000 ML IV SCH (06:45)
[2021-06-27] MEDS: METOPROLOL TARTRATE 25 MG TAB PO SCH ×3 (06:53→22:15)
[2021-06-27] MEDS: BUDESONIDE/FORMOTEROL 160/4.5MCG INHALER INH SCH ×2 (07:00→19:42)
[2021-06-27] MEDS: ASPIRIN 81 MG ENTERIC COATED PO SCH (09:16)
[2021-06-27] MEDS: NICOTINE 14 MG/EA PATCH TOP SCH (09:16)
[2021-06-27] MEDS ORDERED: OYST-CAL-D 500MG TABLET PO PRN (16:15)
[2021-06-27] MEDS: CALCIUM CARBONATE 500 MG CHEWABLE TABS PO PRN (16:27)
[2021-06-27] MEDS: ENOXAPARIN 30 MG/0.3 ML SYR SC SCH (17:00)
[2021-06-28] VITALS (8 sets, daily range): BP systolic 108–148; BP diastolic 46–64
[2021-06-28] MEDS: METOPROLOL TARTRATE 25 MG TAB PO SCH ×3 (06:00→21:50)
[2021-06-28] MEDS: LEVOTHYROXINE SODIUM 100 MCG TAB PO SCH (06:17)
[2021-06-28] MEDS: TIOTROPIUM 18 MCG INH POWDER INH SCH (07:25)
[2021-06-28] MEDS: BUDESONIDE/FORMOTEROL 160/4.5MCG INHALER INH SCH ×2 (07:25→20:05)
[2021-06-28] MEDS: ASPIRIN 81 MG ENTERIC COATED PO SCH (08:31)
[2021-06-28] MEDS: NICOTINE 14 MG/EA PATCH TOP SCH (08:31)
[2021-06-28] MEDS: Morphine 4mg Syringe 4 MG/ML INJ IV PRN (13:47)
[2021-06-28] MEDS: ENOXAPARIN 30 MG/0.3 ML SYR SC SCH (17:07)
[2021-06-28] MEDS: CALCIUM CARBONATE 500 MG CHEWABLE TABS PO PRN (19:34)
[2021-06-28] MEDS: ALBUTEROL/IPRATROPIUM 3 ML NEB NEB PRN (20:05)
[2021-06-29] VITALS (7 sets, daily range): BP systolic 114–141; BP diastolic 52–76
[2021-06-29] MEDS: ALBUTEROL/IPRATROPIUM 3 ML NEB NEB PRN ×3 (00:55→19:15)
[2021-06-29] MEDS: METOPROLOL TARTRATE 25 MG TAB PO SCH ×3 (05:17→21:29)
[2021-06-29] MEDS: LEVOTHYROXINE SODIUM 100 MCG TAB PO SCH (05:17)
[2021-06-29] MEDS: BUDESONIDE/FORMOTEROL 160/4.5MCG INHALER INH SCH ×2 (06:47→19:15)
[2021-06-29] MEDS: TIOTROPIUM 18 MCG INH POWDER INH SCH (06:47)
[2021-06-29] MEDS: ASPIRIN 81 MG ENTERIC COATED PO SCH (09:12)
[2021-06-29] MEDS: NICOTINE 14 MG/EA PATCH TOP SCH (09:12)
[2021-06-29] MEDS: Morphine 4mg Syringe 4 MG/ML INJ IV PRN (10:15)
[2021-06-29] MEDS: ONDANSETRON HCL INJ 2MG/ML 2ML 2 MG/ML VIAL IV PRN (10:15)
[2021-06-29] MEDS: ENOXAPARIN 30 MG/0.3 ML SYR SC SCH (16:36)
[2021-06-30] VITALS (9 sets, daily range): BP systolic 113–148; BP diastolic 55–69
[2021-06-30] MEDS: ALBUTEROL/IPRATROPIUM 3 ML NEB NEB PRN ×3 (01:50→13:50)
[2021-06-30] MEDS: METOPROLOL TARTRATE 25 MG TAB PO SCH ×3 (05:04→21:19)
[2021-06-30] MEDS: LEVOTHYROXINE SODIUM 100 MCG TAB PO SCH (05:04)
[2021-06-30 05:06] LABS: BASOPHILS % 0.6 % (0.0-1.0); EOSINOPHILS # (AUTO) 0.6 (0.0-0.4); EOSINOPHILS % 8.3 % (0.0-6.0); HEMATOCRIT 33.4 % (34.2-44.1); HEMOGLOBIN 10.8 g/dL (12.0-16.0); LYMPHOCYTES # (AUTO) 1.1 (1.0-3.2); LYMPHOCYTES % 14.8 % (18.0-39.1); MEAN CORPUSCULAR HEMOGLOBIN 31.8 pg (28-32); MEAN CORPUSCULAR HGB CONC 32.3 g/dL (31-35); MEAN CORPUSCULAR VOLUME 98.2 fL (81-99); MONOCYTES # (AUTO) 1.1 (0.2-0.8); MONOCYTES % 15.1 % (4.4-11.3); NEUTROPHILS # (AUTO) 4.3 (2.1-6.9); NEUTROPHILS % 60.8 % (38.7-80.0); PLATELET COUNT 185 x10e3/uL (140-360); RED CELL DISTRIBUTION WIDTH 12.1 % (11.7-14.4)
[2021-06-30 05:26] LABS: ANION GAP 11.6 mmol/L (8-16); CALCIUM 10.2 mg/dL (8.4-10.2); CREATININE, SERUM 0.85 mg/dL (0.57-1.11); POTASSIUM 4.6 mmol/L (3.5-5.1)
[2021-06-30] MEDS: BUDESONIDE/FORMOTEROL 160/4.5MCG INHALER INH SCH ×2 (06:47→19:35)
[2021-06-30] MEDS: TIOTROPIUM 18 MCG INH POWDER INH SCH (06:47)
[2021-06-30] MEDS: ASPIRIN 81 MG ENTERIC COATED PO SCH (08:59)
[2021-06-30] MEDS: NICOTINE 14 MG/EA PATCH TOP SCH (08:59)
[2021-06-30] MEDS: ENOXAPARIN 30 MG/0.3 ML SYR SC SCH (16:25)
[2021-06-30] MEDS: ACETAMINOPHEN 325 MG TAB PO PRN (19:58)
[2021-07-01] VITALS (8 sets, daily range): BP systolic 104–160; BP diastolic 56–67
[2021-07-01] MEDS: METOPROLOL TARTRATE 25 MG TAB PO SCH ×3 (05:12→20:34)
[2021-07-01] MEDS: LEVOTHYROXINE SODIUM 100 MCG TAB PO SCH (05:13)
[2021-07-01] MEDS: TIOTROPIUM 18 MCG INH POWDER INH SCH (06:00)
[2021-07-01] MEDS: BUDESONIDE/FORMOTEROL 160/4.5MCG INHALER INH SCH ×2 (07:45→19:40)
[2021-07-01] MEDS: ASPIRIN 81 MG ENTERIC COATED PO SCH (09:00)
[2021-07-01] MEDS: NICOTINE 14 MG/EA PATCH TOP SCH (09:00)
[2021-07-01] MEDS: Morphine 4mg Syringe 4 MG/ML INJ IV PRN (10:11)
[2021-07-01] MEDS: DOCUSATE SODIUM LIQD 100 MG/10 ML UDC NG SCH ×2 (15:15→20:34)
[2021-07-01] MEDS ORDERED: DOCUSATE SODIUM 100 MG CAP ONE (15:25)
[2021-07-01] MEDS: ENOXAPARIN 30 MG/0.3 ML SYR SC SCH (17:23)
[2021-07-01] MEDS: ACETAMINOPHEN 325 MG TAB PO PRN (20:35)
[2021-07-02] VITALS (8 sets, daily range): BP systolic 108–147; BP diastolic 51–79
[2021-07-02] MEDS: METOPROLOL TARTRATE 25 MG TAB PO SCH ×3 (05:49→22:03)
[2021-07-02] MEDS: LEVOTHYROXINE SODIUM 100 MCG TAB PO SCH (05:50)
[2021-07-02] MEDS: TIOTROPIUM 18 MCG INH POWDER INH SCH (07:15)
[2021-07-02] MEDS: BUDESONIDE/FORMOTEROL 160/4.5MCG INHALER INH SCH ×2 (07:15→18:55)
[2021-07-02] MEDS ORDERED: DOCUSATE SODIUM 100 MG CAP ONE (08:18)
[2021-07-02] MEDS: ASPIRIN 81 MG ENTERIC COATED PO SCH (09:00)
[2021-07-02] MEDS ORDERED: DOCUSATE SODIUM LIQD 100 MG/10 ML UDC PO SCH (09:00)
[2021-07-02] MEDS: DOCUSATE SODIUM 100 MG CAP PO SCH ×2 (09:00→20:55)
[2021-07-02] MEDS: NICOTINE 14 MG/EA PATCH TOP SCH (09:00)
[2021-07-02] MEDS: ONDANSETRON HCL 4 MG ORAL DISINTEGRATING TAB PO PRN (09:15)
[2021-07-02] MEDS: Morphine 4mg Syringe 4 MG/ML INJ IV PRN (09:20)
[2021-07-02] MEDS ORDERED: BISACODYL 5 MG TAB EC PO ONE (12:00)
[2021-07-02] MEDS: ENOXAPARIN 30 MG/0.3 ML SYR SC SCH (17:00)
[2021-07-02] MEDS: ACETAMINOPHEN 325 MG TAB PO PRN (22:04)
[2021-07-03] VITALS (8 sets, daily range): BP systolic 105–167; BP diastolic 61–81
[2021-07-03] MEDS: ONDANSETRON HCL 4 MG ORAL DISINTEGRATING TAB PO PRN ×2 (03:48→14:14)
[2021-07-03] MEDS: LEVOTHYROXINE SODIUM 100 MCG TAB PO SCH (05:35)
[2021-07-03] MEDS: METOPROLOL TARTRATE 25 MG TAB PO SCH ×3 (05:35→21:48)
[2021-07-03] MEDS: TIOTROPIUM 18 MCG INH POWDER INH SCH (06:00)
[2021-07-03] MEDS: BUDESONIDE/FORMOTEROL 160/4.5MCG INHALER INH SCH ×2 (07:00→18:48)
[2021-07-03] MEDS: NICOTINE 14 MG/EA PATCH TOP SCH (09:03)
[2021-07-03] MEDS: ASPIRIN 81 MG ENTERIC COATED PO SCH (09:03)
[2021-07-03] MEDS: DOCUSATE SODIUM 100 MG CAP PO SCH ×2 (09:03→21:47)
[2021-07-03] MEDS ORDERED: MAGNESIUM HYDROXIDE 30 ML UDC PO ONE (12:30)
[2021-07-03] MEDS: Morphine 4mg Syringe 4 MG/ML INJ IV PRN (14:14)
[2021-07-03] MEDS: ENOXAPARIN 30 MG/0.3 ML SYR SC SCH (17:00)
[2021-07-04] VITALS (7 sets, daily range): BP systolic 101–123; BP diastolic 54–76
[2021-07-04] MEDS: ACETAMINOPHEN 325 MG TAB PO PRN (03:50)
[2021-07-04] MEDS: METOPROLOL TARTRATE 25 MG TAB PO SCH ×2 (05:35→14:00)
[2021-07-04] MEDS: LEVOTHYROXINE SODIUM 100 MCG TAB PO SCH (05:35)
[2021-07-04] MEDS: TIOTROPIUM 18 MCG INH POWDER INH SCH (06:49)
[2021-07-04] MEDS: BUDESONIDE/FORMOTEROL 160/4.5MCG INHALER INH SCH (06:49)
[2021-07-04] MEDS: ALBUTEROL/IPRATROPIUM 3 ML NEB NEB PRN (06:49)
[2021-07-04] MEDS: DOCUSATE SODIUM 100 MG CAP PO SCH (09:13)
[2021-07-04] MEDS: ASPIRIN 81 MG ENTERIC COATED PO SCH (09:13)
[2021-07-04] MEDS: NICOTINE 14 MG/EA PATCH TOP SCH (09:13)
[2021-07-04] MEDS ORDERED: LOPRESSOR25 MG PO (12:38)
[2021-07-04] MEDS ORDERED: SPIRIVA18 MCG INH (12:38)
[2021-07-04] MEDS ORDERED: ASPIRIN EC81 MG PO (12:38)
[2021-07-04] MEDS ORDERED: ULTRAM 50MG50 MG PO (12:42)
[2021-07-04] MEDS ORDERED: TRAMADOL HCL 50 MG TAB PO ONE (16:00)
== END 2021-07-04 17:31 | disposition home or self-care (01) | DRG 536 ==
LOC: ER 01:49 → ERHOLD 05:07 → MED/SURG 14:31
PROVIDERS: ADMIT Internal Medicine; ATTEND Internal Medicine
DX: S32.491A Other specified fracture of right acetabulum, initial encounter for closed fracture (principal); I10 Essential (primary) hypertension; J44.9 Chronic obstructive pulmonary disease, unspecified; M06.9 Rheumatoid arthritis, unspecified; W19.XXXA Unspecified fall, initial encounter; Z20.822 Contact with and (suspected) exposure to COVID-19; K59.00 Constipation, unspecified; E03.9 Hypothyroidism, unspecified; F17.200 Nicotine dependence, unspecified, uncomplicated
CPT/HCPCS: 36415; 36600; 51700; 71045; 72192; 80048; 80053; 81001; 82805; 84443; 85025; 93005; 93306; 94640; 94664; 94799; 97139; 99251; 99284; J1650; J2270; J2405; J3010; J7030; Q0162; U0002